=== PATIENT | male | born 1955 | race Hispanic/Latino ===

== ENCOUNTER → 2021-10-01 | Outpatient (CLI) | payer OTHER, MEDICARE ==
[2021-10-01 12:42] LABS: CREATININE 0.9 mg/dL (0.5-1.5); MAGNESIUM 1.7 mg/dL (1.80-2.40)
== END | disposition home or self-care (01) ==
LOC: LAB 08:25
PROVIDERS: ATTEND Physician Assistant
DX: I48.0 Paroxysmal atrial fibrillation (principal); R60.9 Edema, unspecified
CPT/HCPCS: 36415; 80048; 83735; 83880

== ENCOUNTER → 2021-10-30 | Outpatient (CLI) | payer OTHER, MEDICARE ==
[2021-10-30 12:30] LABS: CREATININE 0.8 mg/dL (0.5-1.5); MAGNESIUM 1.9 mg/dL (1.80-2.40); POTASSIUM 4.4 mmol/L (3.5-5.1)
== END | disposition home or self-care (01) ==
LOC: LAB 10:00
PROVIDERS: ATTEND Physician Assistant
DX: I48.0 Paroxysmal atrial fibrillation (principal); E78.5 Hyperlipidemia, unspecified
CPT/HCPCS: 36415; 80048; 83735

== ENCOUNTER → 2022-12-16 | Outpatient (CLI) | payer OTHER, MEDICARE ==
[2022-12-16 12:27] LABS: ALBUMIN 3.6 g/dL (3.5-5.0); BILIRUBIN,TOTAL 0.4 mg/dL (0.2-1.0); CREATININE 0.8 mg/dL (0.5-1.5); POTASSIUM 4.3 mmol/L (3.5-5.1); TOTAL PROTEIN, SERUM 7.3 g/dL (6.0-8.3)
== END | disposition home or self-care (01) ==
LOC: LAB 12-13 11:21
PROVIDERS: ATTEND Physician Assistant
DX: I10 Essential (primary) hypertension (principal); I25.10 Atherosclerotic heart disease of native coronary artery without angina pectoris
CPT/HCPCS: 36415; 80053; 80061

== ENCOUNTER → 2024-03-25 | Outpatient (CLI) | payer OTHER, MEDICARE | END | disposition home or self-care (01) | LOC: WHH 07:53 | PROVIDERS: ATTEND Family Medicine | DX: T22.231A Burn of second degree of right upper arm, initial encounter (principal); E11.9 Type 2 diabetes mellitus without complications; E78.5 Hyperlipidemia, unspecified; I25.10 Atherosclerotic heart disease of native coronary artery without angina pectoris; I10 Essential (primary) hypertension; Z95.1 Presence of aortocoronary bypass graft; X10.2XXA Contact with fats and cooking oils, initial encounter; Y93.89 Activity, other specified; Y92.89 Other specified places as the place of occurrence of the external cause; Y99.8 Other external cause status | CPT/HCPCS: G0463; A4450 ==

== ENCOUNTER → 2024-04-08 | Outpatient (CLI) | payer OTHER, MEDICARE | END | disposition home or self-care (01) | LOC: WHH 08:08 | PROVIDERS: ATTEND Family Medicine | DX: T22.231D Burn of second degree of right upper arm, subsequent encounter (principal); E11.9 Type 2 diabetes mellitus without complications; I10 Essential (primary) hypertension; E78.5 Hyperlipidemia, unspecified; I25.10 Atherosclerotic heart disease of native coronary artery without angina pectoris; Z95.1 Presence of aortocoronary bypass graft; X10.2XXD Contact with fats and cooking oils, subsequent encounter | CPT/HCPCS: G0463 ==

== ENCOUNTER → 2024-04-22 | Outpatient (CLI) | payer OTHER, MEDICARE | END | disposition home or self-care (01) | LOC: WHH 08:01 | PROVIDERS: ATTEND Family Medicine | DX: T22.331D Burn of third degree of right upper arm, subsequent encounter (principal); T22.211D Burn of second degree of right forearm, subsequent encounter; T23.261D Burn of second degree of back of right hand, subsequent encounter; T31.0 Burns involving less than 10% of body surface; E11.9 Type 2 diabetes mellitus without complications; I10 Essential (primary) hypertension; E78.5 Hyperlipidemia, unspecified; I25.10 Atherosclerotic heart disease of native coronary artery without angina pectoris; Z95.1 Presence of aortocoronary bypass graft; X10.2XXD Contact with fats and cooking oils, subsequent encounter | CPT/HCPCS: G0463 ==

== ENCOUNTER 2024-05-06 08:11 | Outpatient (CLI) | payer OTHER, MEDICARE | END 2024-05-06 12:59 | disposition home or self-care (01) | LOC: WHH 08:11 | PROVIDERS: ATTEND Family Medicine | DX: T22.211D Burn of second degree of right forearm, subsequent encounter (principal); T22.331D Burn of third degree of right upper arm, subsequent encounter; T23.261D Burn of second degree of back of right hand, subsequent encounter; T31.0 Burns involving less than 10% of body surface; E11.9 Type 2 diabetes mellitus without complications; I10 Essential (primary) hypertension; E78.5 Hyperlipidemia, unspecified; I25.10 Atherosclerotic heart disease of native coronary artery without angina pectoris; Z95.1 Presence of aortocoronary bypass graft; X10.2XXD Contact with fats and cooking oils, subsequent encounter | CPT/HCPCS: G0463 ==